=== PATIENT | male | born 1985 | race Caucasian/White ===

== ENCOUNTER 2019-02-23 13:15 | Inpatient (IN) | payer OTHER ==
[~2019-02-23] VITALS: Ht 177.8 cm; Wt 86.2 kg
[~2019-02-23 13:15] MED LIST: AUGMENTIN 875875 MG PO; HYDROCODON-ACE1 EAC7 PO; NOHOMEMEDICATIONS
[2019-02-23 13:20] VITALS: BP 134/92
[2019-02-23] MEDS ORDERED: OXTELLAR XR300 MG PO (13:26)
[2019-02-23 14:00] LABS: URINE BILIRUBIN NEGATIVE (Negative); URINE BLOOD 3+ (Negative); URINE COLOR YELLOW; URINE GLUCOSE-RANDOM NEGATIVE (Negative); URINE KETONES NEGATIVE (Negative); URINE LEUKOCYTES-REFLEX NEGATIVE (Negative); URINE NITRITE-REFLEX NEGATIVE (Negative); URINE PROTEIN NEGATIVE (Negative); URINE UROBILINOGEN 0.2 E.U./dl (0.2-1.0)
[2019-02-23 14:01] LABS: URINE CLARITY HAZY
[2019-02-23 14:05] LABS: ABSOLUTE BASOPHILS 0.1 thou/uL (0.0-0.2); ABSOLUTE EOSINOPHILS 0.1 thou/uL (0.0-0.7); ABSOLUTE LYMPHOCYTES 2.1 thou/uL (0.8-5.3); ABSOLUTE MONOCYTES 0.6 thou/uL (0.0-1.2); ABSOLUTE NEUTROPHILS 4.6 thou/uL (1.6-8.1); BASOPHILS 0.7 %; EOSINOPHILS 1.9 %; HEMATOCRIT 47.4 % (42.0-52.0); HEMOGLOBIN 16.8 gm/dL (14.0-18.0); LYMPHOCYTES 27.7 %; MCH 31.2 pg (26.0-34.0); MCHC 35.4 g/dL (28.0-37.0); MCV 88.1 fL (80.0-100.0); MONOCYTES 8.5 %; MPV 7.2 fl. (7.2-11.1); NUCLEATED RBCS 0 /100WBC; PLATELET COUNT* 243 thou/uL (150-400); POLYS 61.2 %; RBC 5.38 mil/uL (4.50-6.00); RDW-CV 12.4 % (10.5-14.5); WBC 7.6 thou/uL (4.0-11.0)
[2019-02-23 14:15] LABS: SQUAMOUS 0-3 Few /LPF (0-3)
[2019-02-23 14:16] LABS: BACTERIA-REFLEX None Seen /HPF (None Seen); CASTS None Seen /LPF (None Seen); CRYSTALS None Seen /LPF (None Seen); URINE RBC >20 Many /HPF (0-2); URINE WBC-REFLEX None Seen /HPF (0-5)
[2019-02-23 14:19] LABS: CALCIUM 10.1 mg/dL (8.5-10.1); CREATININE 1.1 mg/dL (0.6-1.3); POTASSIUM 3.9 mmol/L (3.5-5.1)
[2019-02-23 14:23] LABS: TOTAL BILIRUBIN 0.5 mg/dL (<0.1-1.0); TOTAL PROTEIN 7.2 g/dL (6.4-8.2)
[2019-02-23 18:40] VITALS: BP 134/85
[2019-02-23 21:00] VITALS: BP 120/78
[2019-02-24] VITALS (7 sets, daily range): BP systolic 110–124; BP diastolic 64–82
[2019-02-24 05:11] LABS: CREATININE 1.3 mg/dL (0.6-1.3); MAGNESIUM 2.1 mg/dL (1.8-2.4); POTASSIUM 3.9 mmol/L (3.5-5.1)
[2019-02-24] MEDS ORDERED: FLOMAX0.4 MG PO (13:48)
[2019-02-24] MEDS ORDERED: PYRIDIUM200 MG PO ×2 (13:50→16:01)
[2019-02-24] MEDS ORDERED: NORCO 5-325 TA1 EAC1 PO (13:51)
[2019-02-24] MEDS ORDERED: LEVSIN0.125 MG SUBLING (13:51)
--- NOTE | 2019-02-27 08:33 | EKG ---
[place] [address] ELECTROCARDIOGRAM REPORT Name: NIKHIL WALKER Room: [address] IN [facility].#: [id number] Admission: 02/23/19 Attend Phys: Sunny Benitez MD Discharge: 02/24/19 Date of : 83 Report #: [id number] THIS REPORT FOR: //name// [facility] ED Test Date: 2019-02-23 Test Time: 14:28:05 Pat Name: NIKHIL WALKER Department: Room: [address] Gender: M Wood Craftsman: : 1985 Requested By: Edilberto Covington Order Number: [id number] Manuela MD: Nikhil Gaspar Measurements Intervals [place] Rate: 51 P: -1 [place]: 150 QRS: 91 QRSD: 107 T: 42 QT: 428 QTc: 395 Interpretive Statements Sinus rhythm Borderline right axis deviation No previous ECG available for comparison Electronically Signed On 02-27-2019 8:33:20 CDT by Nikhil Gaspar [email or web address] <ELECTRONICALLY SIGNED> By: Nikhil Gaspar MD, [facility] 02/27/19 0833 1428 1428 Nikhil Gaspar MD, FACC /EPI
[2019-03-06 07:35] LABS: STONE COLOR Red (()); STONE COMMENT Comment: (()); STONE COMMENT Note: (())
--- NOTE | 2019-03-12 11:21 | OP ---
[address] [address] OPERATIVE REPORT Name: PETERSON WALKER Room: [address] IN M.R.#: [id number] Admission: 02/23/19 Attend Phys: Sunny Benitez MD Discharge: 02/24/19 Date of : 83 Report #: [id number] THIS REPORT FOR: //name// CC: Lakhwinder Benitez DATE OF SERVICE: 02/24/2019 PREOPERATIVE DIAGNOSES: Right flank pain, right ureteropelvic junction calculus, and hydronephrosis. POSTOPERATIVE DIAGNOSES: Right flank pain, right ureteropelvic junction calculus, and hydronephrosis. PROCEDURES: Cystoscopy, right retrograde pyelogram, right ureterorenoscopy, stone extraction, and stent placement. SURGEON: Delfin Davis MD ANESTHESIA: General. ESTIMATED BLOOD LOSS: None. DRAINS: A 6 x 28 left ureteral stent. SPECIMENS: Stone fragments. COMPLICATIONS: None. INDICATIONS: This is a 34-year-old male with left flank pain. Hydronephrosis was noted on noncontrast CT scan, which was also consistent with a 9-mm ureteropelvic junction stone. He is having problems with pain control. Options for management were discussed and he elects cystoscopy with left retrograde pyelogram, left ureteroscopy, possible laser lithotripsy, stone extraction, and possible stent placement. Risks of procedure were explained including but not limited to bleeding; infection; anesthesia; cardiopulmonary and vascular events; injuries to urethra, bladder, ureter and surrounding structures; possible inability to bypass obstruction; possible need for further procedures for treatment of obstruction and/or stone; and possible development of strictures. We also discussed possible further evaluation and management for ureteropelvic junction obstruction as his CT was suspicious for that. He voices clear understanding of all this and wants to proceed. DESCRIPTION OF PROCEDURE: The patient was pretreated with IV Cipro. After induction of general anesthesia, he was positioned, prepped and draped in the lithotomy position. Timeout procedure was performed. [place] [address] OPERATIVE REPORT Name: PETERSON WALKER Room: [address] IN [facility].#: [id number] Admission: 02/23/19 Attend Phys: Sunny Benitez MD Discharge: 02/24/19 Date of : 83 Report #: [id number] performed. The anterior and posterior urethra was within normal limits. The bladder was entered and systematically examined. There were no intravesical stones or lesions. Ureteral orifices were orthotopic. No blood was seen from either. Fluoroscopic interrogation over the left renal shadow does not reveal any definite stone. A 5-[place] ureteral catheter was used to perform a left retrograde pyelogram, which revealed a normal course and caliber of the mid and distal ureter. Proximal ureter was normal up to the level of the ureteropelvic junction where discrete short area of narrowing was noted. There was left hydronephrosis. There was no definite filling defect. I elected to perform ureteroscopy. The ureteral catheter was used to advance a sensor wire into the left renal pelvis with good position confirmed fluoroscopically. Catheter and scope were removed leaving the wire in the place. Fluoroscopic guidance was used to pass an 11-[place] Irish obturator over the wire and into the left ureter with fluoroscopic guidance. This passed easily. The obturator was then connected to a 13-[place] Irish x 36 cm ureteral access sheath and passed in tandem over the wire with fluoroscopic guidance. Again, this passed easily. The obturator was removed. The flexible ureteroscope was passed over the wire within the sheath and into the proximal ureter. The proximal ureter was examined and was normal to the ureteropelvic junction where narrowing was noted. This was negotiated with the scope and the renal pelvis and calices were examined. A stone was encountered near the ureteropelvic junction. When this was engaged with a 0 tip basket to attempt to move it into a better location for laser lithotripsy, it essentially disintegrated into multiple fragments of soft material. These fragments were extracted with a 0 tip basket, but because of the soft nature only minimal material was retrieved as it essentially fell apart when basketed. A small amount of material will be sent for stone analysis. This may represent matrix stone. Repeat examination of the renal pelvis and calices does not reveal any lesions or remaining stone. The wire was advanced back up the scope and into the renal pelvis with visual guidance. The scope was then withdrawn and the remainder of the ureter examined after withdrawing the sheath. There were no ureteral abnormalities. The wire was loaded on the cystoscope and used for placement of a 6 x 28 left ureteral stent with good position confirmed in the renal pelvis fluoroscopically and in the bladder visually. Drainage from the stent was clear. The patient tolerated the procedure well and was taken to the recovery room in stable condition. Plan will be to obtain a repeat radiograph in approximately 1 week and consider removal of his stent depending on those findings and his clinical progress. From a Urology standpoint, this can be managed as an outpatient. <ELECTRONICALLY SIGNED> By: Delfin Davis MD 03/12/19 1121 1110 [id number] Davis MD /david
== END 2019-02-24 16:40 | disposition home or self-care (01) | DRG 661 ==
LOC: M.ERS 13:15 → M.TBA-ER 15:44 → M.3W 15:44
PROVIDERS: Physician Assistant; ADMIT Internal Medicine
PROC: 0T778DZ Dilation of Left Ureter with Intraluminal Device, Via Natural or Artificial Opening Endoscopic (ICD-10-PCS; principal; 2019-02-24)
PROC: 0TC78ZZ Extirpation of Matter from Left Ureter, Via Natural or Artificial Opening Endoscopic (ICD-10-PCS; principal; 2019-02-24)
PROC: BT1F1ZZ Fluoroscopy of Left Kidney, Ureter and Bladder using Low Osmolar Contrast (ICD-10-PCS; principal; 2019-02-24)
DX: N13.2 Hydronephrosis with renal and ureteral calculous obstruction (principal); N17.9 Acute kidney failure, unspecified; F39 Unspecified mood [affective] disorder; R73.9 Hyperglycemia, unspecified; R31.29 Other microscopic hematuria; Z79.899 Other long term (current) drug therapy; Z87.891 Personal history of nicotine dependence